=== PATIENT | male | born 1995 | race Caucasian/White ===

== ENCOUNTER 2017-11-06 00:37 | Emergency (ER) | payer OTHER ==
[~2017-11-06] VITALS: Ht 172.7 cm; Wt 72.6 kg
[~2017-11-06 00:37] MED LIST: HYDROCODONE BIT1 T11 PO; MOTRIN600 MG PO; NAPROSYN500 MG PO; NKHM
[2017-11-06 01:04] LABS: BILIRUBIN NEGATIVE (NEGATIVE); BLOOD NEGATIVE (NEGATIVE); CLARITY CLEAR (CLEAR); COLOR YELLOW (YELLOW); GLUCOSE NEGATIVE (NEGATIVE); KETONE NEGATIVE (NEGATIVE); LEUKO ESTERASE NEGATIVE (NEGATIVE); NITRITE NEGATIVE (NEGATIVE); SPECIFIC GRAVITY <= 1.005 (1.005-1.030); UROBILINOGEN 0.2 E.U./dl (0.2-1.0)
[2017-11-06 01:11] LABS: BACTERIA 1+; EPITHELIAL CELLS 0-2
== END 2017-11-06 01:36 | disposition home or self-care (01) ==
LOC: ED
PROVIDERS: Physician Assistant
DX: N34.2 Other urethritis (principal); F17.200 Nicotine dependence, unspecified, uncomplicated

== ENCOUNTER 2018-01-09 21:26 | Emergency (ER) | payer OTHER ==
[~2018-01-09] VITALS: Ht 172.7 cm; Wt 74.8 kg
[2018-01-09 22:03] LABS: BILIRUBIN NEGATIVE (NEGATIVE); BLOOD NEGATIVE (NEGATIVE); CLARITY SL CLOUDY (CLEAR); COLOR YELLOW (YELLOW); GLUCOSE NEGATIVE (NEGATIVE); KETONE TRACE (NEGATIVE); LEUKO ESTERASE NEGATIVE (NEGATIVE); NITRITE NEGATIVE (NEGATIVE); SPECIFIC GRAVITY 1.025 (1.005-1.030); UROBILINOGEN 0.2 E.U./dl (0.2-1.0)
[2018-01-09 22:07] LABS: BACTERIA 2+; EPITHELIAL CELLS 0-2; WBC 0-2 wbc/hpf (0-5)
== END 2018-01-10 00:13 | disposition home or self-care (01) ==
LOC: ED 21:26
PROVIDERS: Student in an Organized Health Care Education/Training Program
DX: Z11.3 Encounter for screening for infections with a predominantly sexual mode of transmission (principal); R30.0 Dysuria; Z90.49 Acquired absence of other specified parts of digestive tract; Z98.890 Other specified postprocedural states

== ENCOUNTER 2022-03-21 21:07 | Emergency (ER) | payer SELFPAY ==
[~2022-03-21] VITALS: Ht 172.7 cm; Wt 74.8 kg
== END 2022-03-22 00:53 | disposition home or self-care (01) ==
LOC: ED 21:07
DX: F11.23 Opioid dependence with withdrawal (principal); Z90.49 Acquired absence of other specified parts of digestive tract